=== PATIENT | female | born 1965 | race Caucasian/White ===

== ENCOUNTER → 2017-02-04 | Outpatient (CLI) | payer MEDICARE | LOC: MAMO 09:40 | DX: Z12.31 Encounter for screening mammogram for malignant neoplasm of breast (principal) | CPT/HCPCS: G0202 ==

== ENCOUNTER 2021-01-06 17:59 | Emergency (ER) | payer MEDICARE, OTHER ==
[~2021-01-06 17:59] MED LIST: AMITRIPTYLINE H25 MG PO; BACLOFEN10 MG PO; BACTROBAN OINT22 GM TOP; FAMOTIDINE40 MG PO; HYDROCHLOROTHIA25 MG PO; IBU800 MG PO; LIDOCAINE 2% JELLY TOP; LIPITOR10 MG PO; NORCO 5-325 TA1 EACH PO; NORFLEX 100 MG100 MG PO; Voltaren Gel 1% TOP; ZOFRAN4 MG PO
== END 2021-01-06 18:38 | disposition left against medical advice (07) ==
LOC: ER1 17:59
DX: Z53.21 Procedure and treatment not carried out due to patient leaving prior to being seen by health care provider (principal)